=== PATIENT | male | born 1965 | race Caucasian/White ===

== ENCOUNTER 2019-01-20 19:25 | Emergency (ER) | payer OTHER ==
--- NOTE | 2019-01-20 20:25 | ER Document Report ---
ED Medical Screen (RME) - General Chief Complaint: Abdominal Pain Stated Complaint: ABDOMINAL PAIN LEFT LOWER Time Seen by Provider: 01/20/19 20:20 Primary Care Provider: BOONE MUNZO DO [Primary Care Provider] - Follow up as needed Information source: Patient Notes: Patient presents with left-sided abdominal pain that started yesterday. Patient states that he did have an episode in which the pain became severe and radiated to the flank area bilaterally. Patient denies any fever nausea vomiting or diarrhea. Patient states he had one episode in which she had pain with urination but none since then. Patient denies any significant medical history. I have greeted and performed a rapid initial assessment of this patient. A comprehensive ED assessment and evaluation of the patient, analysis of test results and completion of the medical decision making process will be conducted by additional ED providers. TRAVEL OUTSIDE OF THE [place] IN LAST 30 DAYS: No - Related Data Allergies/Adverse Reactions: morphine [Morphine] Adverse Reaction (Intermediate, Verified 04/28/14 13:26) redness @ IV; n/v Past Medical History - Past Medical History Cardiac Medical History: Denies: Hx Coronary Artery Disease, Hx Heart Attack, Hx Hypertension Pulmonary Medical History: Reports: Hx Pneumonia - 1983 Denies: Hx Asthma, Hx Bronchitis, Hx COPD Neurological Medical History: Denies: Hx Cerebrovascular Accident, Hx Seizures Musculoskeltal Medical History: Reports Hx Arthritis - Joint Pain Knees, Back Elbow & Shoulder Past Surgical History: Reports: Hx Cardiac Catheterization - No stent, Hx Orthopedic Surgery. Denies: Hx Pacemaker - Immunizations Hx Diphtheria, Pertussis, Tetanus Vaccination: Yes Physical Exam - Vital signs Vitals: Temp Pulse Resp BP Pulse Ox 98.5 F 83 16 131/70 H 98 01/20/19 19:34 01/20/19 19:34 01/20/19 19:34 01/20/19 19:34 01/20/19 19:34 - General General appearance: Appears well, Alert Notes: Left lower quadrant abdominal tenderness Course - Vital Signs Vital signs: Temp Pulse Resp BP Pulse Ox 98.5 F 83 16 131/70 H 98 01/20/19 19:34 01/20/19 19:34 01/20/19 19:34 01/20/19 19:34 01/20/19 19:34 Doctor's Discharge - Discharge Referrals: TAMMY,BOONE, DO [Primary Care Provider] - Follow up as needed
[2019-01-20 20:49] LABS: ABSOLUTE LYMPHOCYTES (AUTO) 1.7 10^3/uL (0.5-4.7); ABSOLUTE MONOCYTES (AUTO) 0.6 10^3/uL (0.1-1.4); ABSOLUTE NEUT (AUTO) 3.2 10^3/uL (1.7-8.2); BASOPHILS % (AUTO) 0.1 % (0-2); HEMATOCRIT 33.9 % (37.9-51.0); HEMOGLOBIN 10.5 g/dL (13.5-17.0); LYMPHOCYTES % (AUTO) 30.7 % (13-45); MEAN CORPUSCULAR HEMOGLOBIN 21.5 pg (27.0-33.4); MEAN CORPUSCULAR VOLUME 69 fl (80-97); MONOCYTES % (AUTO) 11.5 % (3-13); PLATELET COUNT 276 10^3/uL (150-450); RED BLOOD COUNT 4.88 10^6/uL (4.35-5.55); RED CELL DISTRIBUTION WIDTH 17.7 % (11.5-14.0); SEGMENTED NEUTROPHILS % (AUTO) 57.7 % (42-78); TOTAL CELLS COUNTED % (AUTO) 100 %; WHITE BLOOD COUNT 5.6 10^3/uL (4.0-10.5)
[2019-01-20 21:07] LABS: ALBUMIN 4.3 g/dL (3.5-5.0); ALKALINE PHOSPHATASE 61 U/L (38-126); ANION GAP 9 (5-19); ASPARTATE AMINO TRANSFERASE 17 U/L (17-59); BILIRUBIN,DIRECT 0.1 mg/dL (0.0-0.4); BILIRUBIN,TOTAL 0.2 mg/dL (0.2-1.3); BLOOD UREA NITROGEN 15 mg/dL (7-20); CALCIUM 9.1 mg/dL (8.4-10.2); CARBON DIOXIDE 26 mmol/L (22-30); CHLORIDE 106 mmol/L (98-107); GLUCOSE 100 mg/dL (75-110); POTASSIUM 3.9 mmol/L (3.6-5.0); TOTAL PROTEIN 6.6 g/dL (6.3-8.2)
[2019-01-20 21:17] LABS: APPEARANCE,URINE CLEAR; BILIRUBIN,URINE NEGATIVE (NEGATIVE); COLOR,URINE YELLOW; GLUCOSE, URINE NEGATIVE (NEGATIVE); KETONES,URINE TRACE mg/dL (NEGATIVE); LEUKOCYTE ESTERASE,URINE NEGATIVE (NEGATIVE); NITRITE,URINE NEGATIVE (NEGATIVE); PROTEIN,URINE NEGATIVE (NEGATIVE); URINE SPECIFIC GRAVITY 1.023; UROBILINOGEN,URINE NEGATIVE mg/dL (<2.0)
--- NOTE | 2019-01-20 22:37 | ER Document Report ---
ED GI/ - General Chief Complaint: Lower Abdominal Pain Stated Complaint: ABDOMINAL PAIN LEFT LOWER Time Seen by Provider: 01/20/19 20:20 Primary Care Provider: BOONE MUNOZ DO [Primary Care Provider] - Follow up as needed Notes: Patient is a 53-year-old male that comes emergency department for chief complaint of sharp left lower quadrant pain that is intermittently very sharp. He states that 2 days ago he started noticing this, yesterday he had an episode where he became very sharp, and the pain was radiating to his back at that time. He states symptoms have been coming and going but have not resolved. He denies nausea or vomiting, fever chills, hematuria, he states that he had mild dysuria once but not currently. He denies discharge. He denies history of kidney stones, he has had negative colonoscopies in the past, never had diverticulitis, denies any abdominal surgeries. TRAVEL OUTSIDE OF THE [place] IN LAST 30 DAYS: No - Related Data Allergies/Adverse Reactions: morphine [Morphine] Adverse Reaction (Intermediate, Verified 01/20/19 21:07) redness @ IV; n/v Past Medical History - General Information source: Patient - Social History Smoking Status: Never Smoker Drug Abuse: None Lives with: Family Family History: Reviewed & Not Pertinent, CAD, DM Patient has suicidal ideation: No Patient has homicidal ideation: No - Past Medical History Cardiac Medical History: Denies: Hx Coronary Artery Disease, Hx Heart Attack, Hx Hypertension Pulmonary Medical History: Reports: Hx Pneumonia - 1983 Denies: Hx Asthma, Hx Bronchitis, Hx COPD Neurological Medical History: Denies: Hx Cerebrovascular Accident, Hx Seizures Musculoskeletal Medical History: Reports Hx Arthritis - Joint Pain Knees, Back Elbow & Shoulder Past Surgical History: Reports: Hx Cardiac Catheterization - No stent, Hx Orthopedic Surgery - SLAP repair left shoulder. Denies: Hx Pacemaker - Immunizations Hx Diphtheria, Pertussis, Tetanus Vaccination: Yes Review of Systems - Review of Systems Constitutional: No symptoms reported EENT: No symptoms reported Cardiovascular: No symptoms reported Respiratory: No symptoms reported Gastrointestinal: See HPI Genitourinary: See HPI Male Genitourinary: No symptoms reported Musculoskeletal: No symptoms reported Skin: No symptoms reported Hematologic/Lymphatic: No symptoms reported Neurological/Psychological: No symptoms reported Physical Exam - Vital signs Vitals: Temp Pulse Resp BP Pulse Ox 98.5 F 83 16 131/70 H 98 0928/19 19:34 01/20/19 19:34 01/20/19 19:34 01/20/19 19:34 01/20/19 19:34 - Notes Notes: GENERAL: Alert, interacts well. No acute distress. HEAD: Normocephalic, atraumatic. EYES: Pupils equal, round, and reactive to light. Extraocular movements intact. ENT: Oral mucosa moist, tongue midline. Oropharynx unremarkable. Airway patent. Nares patent, no nasal septal hematoma, TM's intact. NECK: Full range of motion. Supple. Trachea midline. LUNGS: Clear to auscultation bilaterally, no wheezes, rales, or rhonchi. No respiratory distress. HEART: Regular rate and rhythm. No murmur ABDOMEN: Specifically tender in the left lower quadrant with some mild wincing. No severe tenderness. No guarding. No rigidity. Bowel sounds present t hroughout. GENITOURINARY: Deferred EXTREMITIES: Moves all 4 extremities spontaneously. No edema, normal radial and dorsalis pedis pulses bilaterally. No cyanosis. BACK: No CVA tenderness. No cervical, thoracic, lumbar midline tenderness. No saddle anesthesia, normal distal neurovascular exam. Moves all extremities in full range of motion. NEUROLOGICAL: Alert and oriented x3. Normal speech. Cranial nerves II through XII grossly intact. PSYCH: Normal affect, normal mood. SKIN: Warm, dry, normal turgor. No rashes or lesions noted. Course - Re-evaluation Re-evalutation: Patient does have specific tenderness of the left lower quadrant with some wincing but no guarding. He is well-appearing otherwise. His vital signs are unremarkable. CBC shows some iron deficiency anemia but this is not new, chemistry unremarkable, urine with only 2 red blood cells but otherwise unremarkable. No CVA tenderness. I discussed with patient. Because of patient's symptoms becoming sharp at times, his abdominal tenderness on exam, decision was made to CAT scan to rule out acute etiology. CAT scan does not show stone, diverticulitis, perforation, or acute finding. I discussed the patient. He states satisfaction, however he still has the tenderness in the left lower quadrant which is very specific and reproducible. Discussed options. Decision was made to treat him for suspected diverticulitis, discussed follow-up, expectations, and return precautions. Patient states appreciation and agreement. - Vital Signs Vital signs: Temp Pulse Resp BP Pulse Ox 97.8 F 64 17 106/74 98 01/21/19 00:23 01/21/19 00:23 01/21/19 00:23 01/21/19 00:23 01/21/19 00:23 - Laboratory Result Diagrams: 01/20/19 20:33 01/20/19 20:33 Laboratory results interpreted by me: 01/20/19 01/20/19 20:33 20:33 Hgb 10.5 L Hct 33.9 L MCV 69 L MCH 21.5 L MCHC 31.0 L RDW 17.7 H Urine Ketones TRACE H Discharge - Discharge Clinical Impression: LLQ abdominal pain Condition: Stable Disposition: HOME, SELF-CARE Instructions: Oral Narcotic Medication ([facility]) Additional Instructions: Your work-up and imaging are reassuring, however your symptoms and evaluation along with your work-up are most consistent with developing diverticulitis. We are treating you for this, take the antibiotics as prescribed, take Tylenol or ibuprofen for pain, take the provided pain medication if needed for severe pain with the precautions listed. I recommend a clear fluid diet at least for the next 24 hours. Follow-up close with your primary care provider. Return if you worsen in any way including fever, vomiting, severe worsening pain, or any other concerning symptoms. Prescriptions: Ciprofloxacin HCl [Cipro 500 mg Tablet] 500 mg PO BID 7 Days #14 tablet Metronidazole [Flagyl 500 mg Tablet] 500 mg PO TID 7 Days #21 tablet Forms: Return to Work Referrals: BOONE MUNOZ DO [Primary Care Provider] - Follow up as needed
--- NOTE | 2019-01-20 23:38 | RADIOLOGY REPORT (SQ) ---
EXAM DESCRIPTION: [facility]: CT ABDOMEN PELVIS WITHOUT IV CONTRAST CLINICAL HISTORY: 53 years Male; sharp LLQ pain radiating to back TECHNIQUE: CT of the abdomen and pelvis without contrast. All CT scans at this facility use dose modulation, iterative reconstruction, and/or weight based dosing when appropriate to reduce radiation dose to as low as reasonably achievable. COMPARISON: None. FINDINGS: Abdomen: Liver:No focal lesions. No intrahepatic ductal distention. Gallbladder: Contracted, with at least one calcified stone. No adjacent edema. Pancreas:Within normal limits Spleen:Within normal limits Right kidney:No hydronephrosis. No renal or ureteral calculi. Left kidney:No hydronephrosis. No renal or ureteral calculi. Adrenal glands:Within normal limits Vascular structures:Within normal limits (although limited evaluation on noncontrast exam). Pelvis: Small bowel:No significant distention. Appendix:Within normal limits Colon:No distention or acute pericolonic edema. No free intraperitoneal fluid or air. Bones: No acute findings. Mild facet arthropathy in the lower lumbar spine. Bladder: Unremarkable. No pelvic mass or adenopathy. Note that evaluation of the bowel and solid organs is somewhat limited due to lack of intravenous and oral contrast. IMPRESSION: 1. Cholelithiasis 2. No renal or ureteral calculi. 3. No acute findings.
[2019-01-21 00:01] LABS: CHLAM PCR NOT DETECTED (NOT DETECT)
[2019-01-21] MEDS ORDERED: AMOXICILLIN TR/POT CLAVULANATE 500-125 MG TAB PO ONE (00:04)
[2019-01-21] MEDS ORDERED: METRONIDAZOLE 500 MG TABLET PO ONE (00:05)
[2019-01-21] MEDS ORDERED: CIPROFLOXACIN HCL 500 MG TABLET PO ONE (00:05)
[2019-01-21] MEDS ORDERED: ONDANSETRON ODT 4 MG TAB (6 TAB/ER DISP) PO PRN (00:06)
[2019-01-21] MEDS ORDERED: HYDROCODONE/ACETAMINOPHEN 5-325 MG (6 TAB/ER DISP) PO PRN (00:06)
[2019-01-21 00:24] VITALS: BP 106/74
== END 2019-01-21 00:23 | disposition home or self-care (01) ==
LOC: ER 19:25
DX: R10.32 Left lower quadrant pain (principal); R10.813 Right lower quadrant abdominal tenderness; D50.9 Iron deficiency anemia, unspecified
CPT/HCPCS: 36415; 74176; 80053; 81001; 85025; 87491; 87591; 99284